=== PATIENT | female | born 1970 | race American Indian/Alaskan Native ===

== ENCOUNTER 2017-02-09 07:31 | Day surgery (SDC) | payer OTHER ==
[2017-02-09 07:54] VITALS: BMI 40.8
[2017-02-09] MEDS ORDERED: Lidocaine 1% Inj (20ml) ONE (08:06)
[2017-02-09] MEDS ORDERED: methylPREDNISolone Depo 80 mg/ml Inj ONE (08:06)
[2017-02-09] MEDS ORDERED: Bupivacaine HCl 0.25% PF (10 ml) Inj ONE (08:06)
[2017-02-09] MEDS ORDERED: Propofol 10 mg/ml Inj (20 ML) ONE (09:09)
[2017-02-09] MEDS ORDERED: Lactated Ringer's 1,000 ML IV ONE (09:13)
[2017-02-09] MEDS ORDERED: Lidocaine 1% Inj (20ml) IJ ONE ×2 (09:24)
[2017-02-09] MEDS ORDERED: methylPREDNISolone Depo 80 mg/ml Inj IM ONE (09:24)
[2017-02-09] MEDS ORDERED: HYDROmorphone 0.5 mg/0.5 ml ISec IVP PRN (10:15)
--- NOTE | 2017-02-09 10:40 | OP ---
PROCEDURE DATE: 02/09/2017 SURGEON: Vinayak Braden MD. ANESTHESIOLOGIST: Dr. Saunders. PREOPERATIVE DIAGNOSIS: Lumbar spondylosis. POSTOPERATIVE DIAGNOSIS: Lumbar spondylosis. PROCEDURE: Bilateral lumbar medial nerve branch block at L3-L4, L4-L5, and L5- S1 under fluoroscopic guidance. COMPLICATIONS: None. EXPECTED BLOOD LOSS: None. TECHNIQUE: After informed consent was obtained, the patient was brought to the OR and placed on the table in the prone position. All pressure points were padded, and sedation was administered by anesthesia. The lumbosacral spine was prepped with iodine x 3 and draped in normal sterile fashion. X-ray was used in AP view to locate the L3, L4, and L5 vertebral bodies. One milliliter of 1% lidocaine was used for a skin wheal. A 22-gauge 3-1/2 inch spinal needle was advanced towards the intersection of the left L3 transverse process and superior articular process. The 22 gauge 3-1/2 inch spinal needle was placed to bony contact, and there was no paresthesia during placement of the needle. After negative aspiration for heme or CSF, 1 mL of 0.5% lidocaine and Depo- Medrol and depomedrol was easily instilled at this level. This procedure was repeated for the left L4-L5, left L5-S1 facet joints, and the right L3-L4, L4-L5 , and L5-S1 facet joints. The patient was brought to stage II recovery room with bilateral lower extremity motor and sensory intact. Vinayak Braden MD cc: [id number] TT: 02/09/2017 10:39:39 jn MTDD
[2017-02-09 13:48] VITALS: RESP 20; O2SAT 99
[2017-02-09 14:46] VITALS: BP 133/71; PULSE 56; TEMP 97.3
--- NOTE | 2017-02-10 15:12 | RAD ---
PROCEDURE: Lumbar Epidural Injection HISTORY: EPIDURAL TECHNIQUE: Fluoroscopic guidance was provided for epidural injection for pain management purposes. FINDINGS: Total fluoroscopic time (continuous mode) utilized during the procedure: 37.8 seconds. IMPRESSION: Fluoroscopic guidance provided for epidural injection. Please refer procedure.
== END 2017-02-09 12:55 | disposition home or self-care (01) ==
LOC: H.OPSURG 07:31
PROVIDERS: ATTEND Anesthesiology Pain Medicine
DX: M47.816 Spondylosis without myelopathy or radiculopathy, lumbar region (principal)